=== PATIENT | female | born 1930 | race Caucasian/White ===

== ENCOUNTER 2018-03-10 10:35 | Observation (INO) | payer MEDICARE ==
[2018-03-10] MEDS ORDERED: NS 0.9% 1000 ML* 1,000 ML IV ONE (11:44)
[2018-03-10] MEDS ORDERED: Meclizine TAB* 12.5 MG PO ONE (11:44)
[2018-03-10] MEDS ORDERED: Ondansetron ODT TAB* 4 MG ONE (12:03)
[2018-03-10] MEDS ORDERED: Ondansetron ODT TAB* 4 MG PO ONE (12:05)
--- NOTE | 2018-03-10 12:28 | RAD ---
HISTORY: Dizziness COMPARISONS: Head CT dated June 14, 2012 TECHNIQUE: Multiple contiguous axial CT scans were obtained of the head without intravenous contrast. FINDINGS: HEMORRHAGE/INFARCT: There is no hemorrhage or acute infarct. MASSES/SHIFT: There is no mass or shift. EXTRA-AXIAL SPACES: There are no extra-axial fluid collections. SULCI AND VENTRICLES: There is mild diffuse and proportional enlargement of the sulci and ventricles. CEREBRUM: There are no focal parenchymal abnormalities. BRAINSTEM: There are no focal parenchymal abnormalities. CEREBELLUM: There are no focal parenchymal abnormalities. VESSELS: The vessels are grossly normal. PARANASAL SINUSES: The paranasal sinuses are clear. ORBITS: The orbits are unremarkable. 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 OTHER: None IMPRESSION: NO ACUTE INTRACRANIAL PATHOLOGY.
[2018-03-10 12:46] LABS: ABS Basophils 0 10^3/ul (0-0.2); ABS Eosinophils 0 10^3/ul (0-0.6); ABS Lymphocytes 1.5 10^3/ul (1.0-4.8); ABS Monocytes 0.7 10^3/ul (0-0.8); ABS Neutrophils 6.9 10^3/ul (1.5-7.7); ABS Nucleated RBC 0 10^3/ul; Eosinophil % 0.5 % (0-6); Hematocrit 41 % (35-47); Hemoglobin 13.8 g/dl (12.0-16.0); Lymphocyte % 16.5 % (25-47); Mean Corpuscular HGB Conc 34 g/dl (31-36); Mean Corpuscular Hemoglobin 31 pg (27-31); Mean Corpuscular Volume 90 fL (80-97); Mean Platelet Volume 8.2 um3 (7.4-10.4); Nucleated Red Blood Cells % 0; Platelet Count 269 10^3/ul (150-450); Red Cell Distribution Width 14 % (10.5-15); White Blood Count 9.2 10^3/ul (3.5-10.8)
[2018-03-10 13:11] LABS: INR 0.91 (0.77-1.02)
--- NOTE | 2018-03-10 13:14 | RAD ---
HISTORY: Chest pain, dizziness COMPARISONS: July 03, 2009 VIEWS: 1: frontal portable view of the chest at 12:55 PM FINDINGS: LINES AND TUBES: None. CARDIOMEDIASTINAL SILHOUETTE: The cardiomediastinal silhouette is normal for portable technique. PLEURA: The costophrenic angles are sharp. No pleural abnormalities are noted. LUNG PARENCHYMA: The lungs are clear. ABDOMEN: The upper abdomen is clear. There is no subphrenic gas. BONES AND SOFT TISSUES: No bone or soft tissue abnormalities are noted. IMPRESSION: NO ACTIVE CARDIOPULMONARY DISEASE.
[2018-03-10 13:18] LABS: Urine Appearance Clear; Urine Blood 1+ (Negative); Urine Color Yellow; Urine Ketones Negative (Negative); Urine Protein Negative (Negative); Urine Specific Gravity 1.008 (1.010-1.030); Urine Urobilinogen Negative (Negative)
[2018-03-10 13:23] LABS: EGFR Non-African American 43.1 (>60)
[2018-03-10] MEDS ORDERED: oxyCODONE/Acetamin 5/325 MG* TAB PO PRN (14:55)
[2018-03-10] MEDS ORDERED: Ondansetron INJ* 2 MG/ML VIAL IV PRN (14:55)
[2018-03-10] MEDS ORDERED: Acetaminophen TAB* 325 MG PO PRN (14:55)
[2018-03-10] MEDS ORDERED: NS 0.9% 1000 ML* 1,000 ML IV SCH (15:00)
--- NOTE | 2018-03-10 16:51 | ECHO ---
Patient: TANI NUÑEZ I [facility] Rec#: [id number] : 1930 Date: 03/10/2018 Age: 87y Height: 162.56 cm / 64.0 in Weight: 63.5 kg / 140.0 lbs Sex: F BSA: 1.68 Room#: [facility] Admit Date#: 03/10/2018 Type: Inpatient Referring: Tay Arellano MD Reading: Neftali Greenfield MD Transmission And Protection Engineer: Lilia HoustonJESUS CC: Yevgeniy Lloyd MD Transthoracic Echocardiogram Indication: Dizziness/ giddiness BP: 144/69 HR: 66 Rhythm: NSR Findings History: Breast cancer s/p bilateral mastectomies and HTN. Technical Comments: The study quality is fair. The study is technically limited due to poor parasternal windows. Completed at 1620. Left Ventricle: The left ventricular chamber size is decreased. Mild concentric left ventricular hypertrophy is observed. Basal interventricular septum shows moderate thickening. Global left ventricular wall motion and contractility are within normal limits. There is normal left ventricular systolic function. The estimated ejection fraction is 55-60%. Abnormal left ventricular diastolic function is observed. There is an E to A reversal in the mitral valve flow pattern suggestive of diastolic dysfunction. Left Atrium: The left atrial chamber size is normal. Right Ventricle: The right ventricular cavity size is normal. The right ventricular global systolic function is normal. Right Atrium: The right atrial cavity size is normal. Aortic Valve: The aortic valve is trileaflet. The aortic valve leaflets are mildly thickened. There is mild aortic regurgitation. There is no evidence of aortic stenosis. Mitral Valve: The mitral valve leaflets are mildly thickened. There is a trace of mitral regurgitation. There is no evidence of mitral stenosis. Tricuspid Valve: The tricuspid valve leaflets are normal. There is mild tricuspid regurgitation. The right ventricular systolic pressure is estimated at 30 mmHg. No pulmonary hypertension is noted. There is no tricuspid stenosis. Pulmonic Valve: The pulmonic valve appears normal. There is mild pulmonic regurgitation. There is no pulmonic stenosis. Pericardium: There is no significant pericardial effusion. A pericardial fat pad is visualized. Aorta: There is no dilatation of the ascending aorta. There is no dilatation of the aortic arch. The aortic root is normal in size. Pulmonary Artery: The main pulmonary artery is not well visualized. Venous: The inferior vena cava appears normal in size. There is a greater than 50% respiratory change in the inferior vena cava dimension. Summary: There was not any prior study for comparison. Conclusions The left ventricular chamber size is decreased. Mild concentric left ventricular hypertrophy is observed. There is normal left ventricular systolic function. The estimated ejection fraction is 55-60%. Abnormal left ventricular diastolic function is observed. There is mild aortic regurgitation. There is a trace of mitral regurgitation. There is mild tricuspid regurgitation. There is mild pulmonic regurgitation. Measurements Name Value Normal Range RVIDd (AP) 2D 3 cm (0.9 - 2.6) RVDdMajor (2D) 4.2 cm (2.2 - 4.4) RAd ISD 4CH 4 cm (3.4 - 4.9) RA (A4C)W 3.9 cm (2.9 - 4.6) IVSd (2D) 1.1 cm (0.6 - 1) LVPWd (2D) 1.1 cm (0.6 - 1) LVIDd (2D) 3 cm (3.6 - 5.4) LVIDs (2D) 2.5 cm - LV FS (2D) 18 % (25 - 45) Aortic Annulus 1.7 cm (1.4 - 2.6) Ao root diameter (2D) 3.5 cm (2.1 - 3.5) Ascending Ao 3.2 cm (2.1 - 3.4) Aortic arch 2.6 cm (1.8 - 3.4) LA dimension (AP) 2D 2.9 cm (2.3 - 3.8) LAd ISD 4CH 4.5 cm (2.9 - 5.3) LA ISD 4CH W 3.8 cm (2.5 - 4.5) Name Value Normal Range LA ESV SP 4CH (A/L) 34 ml - LA ESV SP 2CH (A/L) 33 ml - LA ESV BP (A/L) 35 ml - LA ESV BP (A/L) index 21 ml/m2 - LA ESV SP 4CH (MOD) 31 ml - LA ESV SP 2CH (MOD) 32 ml - Name Value Normal Range MV E-wave Vmax 0.56 m/sec - MV deceleration time 251.18 msec - MV A-wave Vmax 0.73 m/sec - MV E:A ratio 0.78 ratio - LV septal e' Vmax 0.07 m/sec - LV lateral e' Vmax 0.07 m/sec - LV E:e' septal ratio 8 ratio - LV E:e' lateral ratio 8 ratio - Name Value Normal Range AV Vmax 1.4 m/sec - AV VTI 27.85 cm - AV peak gradient 7.35 mmHg - AV mean gradient 2.93 mmHg - LVOT Vmax 1.2 m/sec - LVOT VTI 23.71 cm - LVOT peak gradient 5.59 mmHg - LVOT mean gradient 1.8 mmHg - JOSE Vmax 0.6 m/sec - Name Value Normal Range TR Vmax 2.6 m/sec - TR peak gradient 27 mmHg - RAP 3 mmHg - RVSP 30 mmHg - IVC diameter 1.8 cm - Name Value Normal Range PV Vmax 1.02 m/sec - PV peak gradient 4.21 mmHg - NH end-diastolic Vmax 0.86 m/sec -
--- NOTE | 2018-03-10 18:29 | ED ---
Guy Douglas Julia, scribed for Mary Ellen Martinez MD on 03/10/18 at 1139 . Shortness of Breath - HPI Summary HPI Summary: This patient is a 87 year old F presenting to [facility] accompanied by her son from her PCPs office with a chief complaint of dizziness, SOB, and intermittent right sided CP today. Son reports right arm pain that occurred a couple days ago that is currently resolved. Pt describes dizziness as room spinning. Patient denies urinary symptoms and headaches. The patient rates the pain 8/10 in severity. Son states she is typically very quiet and doesnt complain. PMHx of HTN. - History of Current Complaint Chief Complaint: EDDizziness Time Seen by Provider: 03/10/18 10:54 Hx Obtained From: Patient, Family/Loom Control Chain Builder Onset/Duration: Lasting Hours Timing: Constant Dyspnea At: Rest Associated Signs & Symptoms: Chest Pain Unrelated to Cough, Dizzy - Allergy/Home Medications Allergies/Adverse Reactions: Allergies Allergy/AdvReac Type Severity Reaction Status Date / Time No Known Allergies Allergy Verified 03/10/18 10:44 Home Medications: Home Medications Aspirin EC TAB* [Ecotrin EC Low Dose 81 MG*] 81 mg PO DAILY 03/10/18 [History Confirmed 03/10/18] Calcium Carbonate/Vitamin D3 [Calcium 500 + Vit D Caplet] 1 tab PO DAILY [History Confirmed 03/10/18] Cholestyramine Resin* [Questran*] 4 gm PO DAILY 03/10/18 [History Confirmed ] Glucosam/Chondr/Collagn/Hyalur [Th Glucosamine/Chondroiti] 1 cap PO DAILY [History Confirmed 03/10/18] Berne-3 Fatty Acids (Nf) [Fish Oil (NF)] 1,000 mg PO DAILY 03/10/18 [History Confirmed 03/10/18] Omeprazole CAP* [Prilosec CAP* 20 MG] 20 mg PO BID 03/10/18 [History Confirmed 03/10/18] Ramipril CAP* [Altace CAP*] 5 mg PO DAILY 03/10/18 [History Confirmed 03/10/18] PMH/Surg Hx/FS Hx/Imm Hx Cardiovascular History: Reports: Hx Hypertension EENT History: Denies: Hx Deafness Neurological History: Denies: Hx CVA Infectious Disease History: No Infectious Disease History: Denies: Traveled Outside the [place] in Last 30 Days - Family History Known Family History: Positive: Hypertension - Social History Hx Substance Use: No Hx Tobacco Use: Yes Smoking Status (MU): Former Smoker Review of Systems Positive: Chest Pain Positive: Shortness Of Breath Positive: no symptoms reported Positive: Myalgia - right arm pain Neurological: Other - dizziness Negative: Headache All Other Systems Reviewed And Are Negative: Yes Physical Exam - Summary Physical Exam Summary: GENERAL: Patient is a well developed and nourished F who is lying comfortable in the stretcher. Patient is not in any acute respiratory distress. HEAD AND FACE: Normocephalic EYES: PERRLA, EOMI x 2. EARS: Hearing grossly intact. MOUTH: Oropharynx within normal limits. NECK: Supple, trachea is midline, no adenopathy, no JVD, no carotid bruit. CHEST: Symmetric, no tenderness at palpation LUNGS: Clear to auscultation bilaterally. No wheezing or crackles. CVS: Regular rate and rhythm, S1 and S2 present, no murmurs or gallops appreciated. ABDOMEN: Soft, non-tender. Bowel sounds are normal. No abdominal abnormal pulsations. EXTREMITIES: Full ROM in all major joints, no edema, no cyanosis or clubbing. NEURO: Alert and oriented x 3. No acute neurological deficits. Speech is normal and follows commands. Flat affect. Cranial nerves 2-12 grossly intact, no dysmetria finger to nose, SKIN: Dry and warm Triage Information Reviewed: Yes Vital Signs On Initial Exam: Initial Vitals Temp Pulse Resp BP Pulse Ox 97.6 F 80 14 148/84 100 03/10/18 10:45 03/10/18 10:45 03/10/18 10:45 03/10/18 10:45 03/10/18 10:45 Vital Signs Reviewed: Yes Diagnostics - Vital Signs Vital Signs Temp Pulse Resp BP Pulse Ox 03/10/18 10:45 97.6 F 80 14 148/84 100 - Laboratory Result Diagrams: 03/10/18 12:32 03/10/18 12:32 Lab Statement: Any lab studies that have been ordered have been reviewed, and results considered in the medical decision making process. - Radiology CXR Radiology Interpretation Completed By: Radiologist - NO ACTIVE CARDIOPULMONARY DISEASE. ED Physician has reviewed this report. - CT Brain CT CT Interpretation Completed By: Radiologist - NO ACUTE INTRACRANIAL PATHOLOGY. ED Physician has reviewed this report. - EKG 1128 Cardiac Rate: NL EKG Rhythm: Sinus Rhythm - 66 BPM EKG Interpretation: nothing grossly abnormal Re-Evaluation - Re-Evaluation 1 Re-Evaluation Time: 14:05 Comment: Informed patient of results. Admission is recommended. Pt agrees to this plan. 2 Re-Evaluation Time: 14:37 Comment: Pts son is informed of results and plan. Course/Dx - Course Course Of Treatment: 87 y/o F presents to ED with dizziness and right sided CP radiating to R arm. Labs reviewed and is remarkable for elevated BUN creatnine ratio of 21.[address] Brain shows no acute intracrainal pathology. CXR shows no acute cardiopulmonary process. Pt was given 1L of IV fluids, Zofran, Meclizine. Pt reports some improvement but is still dizzy, so pt will be admitted. Case is discussed with hospitalist, Dr. Arellano, who agrees to admit. - Diagnoses Provider Diagnoses: Dizziness, Atypical chest pain - Physician Notifications Discussed Care of Patient With: Tay Arellano - hospitalist Time Discussed With Above Provider: 14:45 Instructed by Provider To: Admit As Inpatient Discharge - Sign-Out/Discharge Documenting (check all that apply): Discharge/Admit/Transfer - admit - Discharge Plan Condition: Stable Disposition: ADMITTED TO [facility] The documentation as recorded by the Guy crystal Julia accurately reflects the service I personally performed and the decisions made by me, Mary Ellen Martinez MD.
[2018-03-10] MEDS ORDERED: Calcium Carbonate CHEW TAB* 500 MG (TUMS) PO ONE (20:34)
[2018-03-10] MEDS: Heparin VIAL(*) 5000 UNITS/ML VIAL (FIVE THOUSAND) SUBCUT SCH (21:35)
[2018-03-10] MEDS: Omeprazole CAP* 20 MG PO SCH (21:36)
[2018-03-11] MEDS ORDERED: Simethicone LIQ* 40 MG/0.6 ML UD ORAL SYRINGE PO ONE (02:54)
[2018-03-11] MEDS: Heparin VIAL(*) 5000 UNITS/ML VIAL (FIVE THOUSAND) SUBCUT SCH (05:45)
[2018-03-11] MEDS: Omeprazole CAP* 20 MG PO SCH (08:06)
[2018-03-11] MEDS ORDERED: Simethicone TAB* 80 MG TAB.CHEW PO PRN (08:28)
[2018-03-11 13:27] VITALS: BP 131/47
--- NOTE | 2018-03-11 15:56 | PN ---
Hospitalist Progress Note Date of Service: 03/11/18 . HOSPITALIST DISCHARGE NOTE: See dc instructions and summary by me. Patient stable for dc dc instructions reviewed with the patient at the bedside. DC patient home today.
--- NOTE | 2018-03-11 20:40 | HP ---
CC: Yevgeniy Lloyd MD COMBINED ADMISSION HISTORY AND PHYSICAL AND DISCHARGE SUMMARY: DATE OF ADMISSION: 03/10/18 TIME OF MY EVALUATION: 3 p.m. PRIMARY CARE PROVIDER: Yevgeniy Lloyd MD CHIEF COMPLAINT: Dizziness/fatigue/right-sided chest pain. HISTORY OF PRESENT ILLNESS: Ms. Zuleta is an 87-year-old female who reports intermittent lightheadedness for approximately 5 days. The patient saw her PCP earlier the day of admission and was referred to the emergency room. She also had a single episode of sharp pain that went from her right hand to her right shoulder. She thinks she might have also had some chest pain, but was very vague about this. The patient denied shortness of breath, though she was unsure about perhaps coughing. She more confidently denied visual changes or headaches. The patient denied any symptomatology like this before. The patient denies any recent illnesses. The patient came to the emergency room and reported similar history to the ED staff there. The patient denies urinary symptoms. The patient is typically stoic according to the patient's son. The patient has a history of hypertension, but takes relatively few medications. PAST MEDICAL HISTORY: 1. Hypertension. 2. Anxiety. 3. Joint pain/arthritis. 4. GERD. OUTPATIENT MEDICATIONS: 1. Aspirin 81 mg by mouth daily. 2. Cholestyramine 4 g dissolve and take in a glass of liquid daily. 3. Omeprazole 20 mg by mouth twice daily. 4. Ramipril 5 mg by mouth daily. 5. Glucosamine/chondroitin 500/400 mg once daily. 6. Calcium 600 mg by mouth daily. 7. Fish oil 1 tablet by mouth once daily. ALLERGIES: No known drug allergies. SOCIAL HISTORY: The patient is retired. 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 She denies any history of illicit drugs. She is a nonsmoker. She is accompanied by her daughter who is 1 of 3 children. She has 2 other sons who live nearby. Her healthcare proxy and emergency contact are detailed in the EMR of the hospital. REVIEW OF SYSTEMS: A review of 14 systems was accomplished at the bedside. This is largely negative except for the pertinent positives I mentioned above in the HPI and past medical history. Of note, the patient feels occasionally short of breath, but has exhibited no objective respiratory difficulties and the patient denies any coughing or objective symptomatology and she states she is not short of breath at the present time. PHYSICAL EXAMINATION ON ADMISSION: GENERAL APPEARANCE: Elderly woman, appears stated age, no apparent distress at this time, somewhat dehydrated in appearance. VITALS: Temperature afebrile, 97.6 degrees Fahrenheit, pulse 70 to 80s and regular, oxygen saturation 99% or 100% with the respiratory rate in the low teens on room air, blood pressure 140s to 160s/80s. HEENT: Oropharynx is dry. Mucous membranes are also dry. No posterior pharyngeal erythema or exudate. NECK: Supple. No elevated jugular venous distention noted. CHEST: Clear anteriorly and posteriorly to auscultation. CARDIAC: Sounds included normal S1 and S2. Regular rate and rhythm. At the time of my exam, no precordial heave. ABDOMEN: Soft and nontender. LYMPH: No adenopathy appreciated. NEUROLOGIC: Her exam is nonfocal with normal gait. No motor, sensory or proprioception component deficiencies. PSYCH: Normal affect. No acute anxiety or depression noted. SKIN: Dry and intact. No rashes, lesions, or breakdown. ADMISSION DATA: White blood cell count normal at 9.2, hemoglobin 13.8, platelets 269,000. Blood chemistries generally unremarkable save an elevated BUN to creatinine ratio of 21.8 with a BUN of 26 and creatinine of 1.19. I do not have a baseline creatinine, but in speaking with her primary care provider, her creatinine is above 1 at baseline. Normal sodium 140, normal potassium at 4.2, normal bicarb at 24. Normal LFTs. Calcium is borderline elevated at 10.7 with a later repeat at 9.3. Lactic acid 1.8 (normal). Initial troponin 0.01. BNP unremarkable at less than 100, specific report not given. Albumin is preserved at 4.2. Total protein 7.0. EKG has some anterior changes consistent with an old ND and no acute ST or T wave changes. Chest x-ray showed no acute cardiopulmonary disease. Her head CT showed no acute intracranial pathology and an echocardiogram done near the time of her admission showed a left ventricular chamber size that was decreased with mild concentric left ventricular hypertrophy, but normal left ventricular systolic function with a preserved estimated ejection fraction between 55% and 60%. Again, abnormal ventricular diastolic function was observed, but no other valvular abnormality of note. There is no pulmonary hypertension noted. No pericardial disease noted. IMPRESSION AND PLAN: Ms. Zuleta is an 87-year-old female with several days of dizziness, lightheadedness, fatigue and one episode of right arm pain and perhaps radiation in to her right chest. PLAN BY MEDICAL PROBLEM: Fatigue/dizziness/lightheadedness. The patient is certainly not dizzy at this point. She reported no room spinning as I interview her, including with movement and ambulation. She seems a bit dehydrated by physical exam and by her labs (BUN to creatinine ratio). We are going to hydrate the patient gently overnight and recheck labs in the morning. The echocardiogram that I ordered at the point of her admission was already done and the results communicated above. The patient does not have any evidence of an acute infection. She has a normal lactic acid level. She is afebrile. She has a normal white count. I do not believe there is obvious infection to explain this. The patient has had a subclinical infection, perhaps a cold that has impaired her oral intake and so I think she might simply be dehydrated. She will be placed on observation status and the patient will be reassessed in the morning. Other medications will be continued as prescribed in the outpatient setting. She will be monitored on telemetry for any arrhythmias and further decisions will be based on her clinical progress. TIME SPENT: Total time taken to admit Ms. Zuleta on 03/10/18 was 75 minutes, greater than half that time spent at the bedside explaining my clinical plan, conducting my interview and examination and possible explanations for her symptoms. HISTORY OF PRESENT ILLNESS AND HOSPITAL COURSE: After the overnight observation, Ms. Zuleta was feeling much improved. Her lab work improved with respect to her BUN to creatinine ratio. Her anion gap which is 13 and her BUN which was 26 dropped to 5 and 18, respectively, though her creatinine remained approximately the same at 1.17, marginally down from 1.19. Serial troponins remained negative. Her elevated calcium at 10.7 normalized to 9.3 with fluids. Her lactic acid was never elevated to justify a recheck. Her coagulation parameters were unremarkable. She never developed a white blood cell count and her urinalysis was also unremarkable. Her telemetry monitoring was normal sinus rhythm consistently. She experienced no respiratory distress. In the morning, she was ambulating without decrease in her pulse oximetry. She walked independently and without the need for help. She had an uneventful lunch and is discharged home in stable condition. I think that she had a subclinical infection the week prior to admission with some dehydration as evidenced by her labs. I do not have justification for ongoing antibiotic therapy. Therefore, I am not changing any of her medications which will be identical to the admission list above with the one exception and that was simethicone 80 mg by mouth twice daily for some bloating. I do think her right- sided discomfort was secondary to bloating as she developed some bloating and gassiness. The patient did experience relief with flatulence and the simethicone was given as a symptomatic therapy. Ms. Zuleta was asked to follow up with Dr. Lloyd this week. She was given return to ED instructions if she experiences any symptoms including but not limited to chest pain, shortness of breath, lightheadedness, or any other worrisome symptoms that might arise and cause concern. CONDITION AT DISCHARGE: Stable. STATUS DURING THIS HOSPITALIZATION: Observation. TIME SPENT: Total time taken to discharge Ms. Zuleta on 03/11/18 was 30 minutes, greater than half that time spent at the bedside going over the testing results and explaining my thoughts about the etiology of her symptomatology. [id number]/[facility] #: [id number] [facility]OSPITALIndigo
== END 2018-03-11 14:15 | disposition home or self-care (01) ==
LOC: ED 10:35 → MEDTELE 14:55
PROVIDERS: ADMIT Internal Medicine; ATTEND Internal Medicine
DX: R07.9 Chest pain, unspecified (principal); R42 Dizziness and giddiness; R53.83 Other fatigue; I10 Essential (primary) hypertension; F41.9 Anxiety disorder, unspecified; K21.9 Gastro-esophageal reflux disease without esophagitis; Z79.899 Other long term (current) drug therapy; R06.02 Shortness of breath; Z87.891 Personal history of nicotine dependence; I51.7 Cardiomegaly
CPT/HCPCS: 36415; 70450; 71045; 80048; 80053; 81003; 81015; 83605; 83735; 83880; 84484; 85025; 85610; 85730; 87077; 87086; 87186; 93005; 93306; 96360; 96361; 96372; 99284; A9270-GY; G0378; J1644

== ENCOUNTER 2018-03-12 15:23 | Inpatient (IN) | payer MEDICARE ==
[2018-03-12 17:50] LABS: ABS Basophils 0 10^3/ul (0-0.2); ABS Eosinophils 0.1 10^3/ul (0-0.6); ABS Monocytes 0.6 10^3/ul (0-0.8); ABS Neutrophils 5.1 10^3/ul (1.5-7.7); ABS Nucleated RBC 0 10^3/ul; Eosinophil % 1.6 % (0-6); Hematocrit 38 % (35-47); Hemoglobin 13.1 g/dl (12.0-16.0); Lymphocyte % 25.2 % (25-47); Mean Corpuscular HGB Conc 35 g/dl (31-36); Mean Corpuscular Hemoglobin 31 pg (27-31); Mean Corpuscular Volume 91 fL (80-97); Mean Platelet Volume 8.3 um3 (7.4-10.4); Nucleated Red Blood Cells % 0; Platelet Count 241 10^3/ul (150-450); Red Blood Count 4.17 10^6/ul (4.0-5.4); Red Cell Distribution Width 14 % (10.5-15); White Blood Count 7.9 10^3/ul (3.5-10.8)
--- NOTE | 2018-03-12 17:52 | RAD ---
Indication: LEFT side rib pain without proceeding injury. Attention posterior sixth through ninth ribs. History of tobacco use. Comparison: March 10, 2018 chest radiograph. Technique: Supine AP chest and 3 dedicated LEFT rib views. Report: No LEFT rib fracture pulmonary consolidation or gross evidence for pleural effusion or pneumothorax within limits of supine technique. Clear RIGHT lung and pleural space. Negative for cardiomegaly. Unremarkable central pulmonary vasculature. Mildly tortuous thoracic aorta without change. Gallbladder fossa level surgical clips. IMPRESSION: Negative for LEFT rib fracture. No evidence for acute intrathoracic disease.
[2018-03-12 18:05] LABS: EGFR Non-African American 38.6 (>60)
[2018-03-12 20:19] LABS: Urine Appearance Clear; Urine Blood Negative (Negative); Urine Color Yellow; Urine Ketones Negative (Negative); Urine Protein Negative (Negative); Urine Specific Gravity 1.008 (1.010-1.030); Urine Urobilinogen Negative (Negative)
[2018-03-12] MEDS ORDERED: Sulfamethox/Trimethoprim DS 800/160* TAB PO ONE (20:56)
[2018-03-12] MEDS ORDERED: Sulfamethox/Trimethoprim DS 800/160* TAB ONE (20:59)
[2018-03-12] MEDS ORDERED: Ramipril CAP* 5 MG PO ONE (22:00)
[2018-03-12] MEDS ORDERED: Acetaminophen TAB* 325 MG PO ONE (23:55)
--- NOTE | 2018-03-13 01:23 | ED ---
Kimmie Douglas Gabriel, mariamibed for Arun Martinez on 03/12/18 at 1946 . Progress - Progress Note Progress Note: This patient was signed out from Dr. Martinez, pending disposition, awaiting mental clearance. The patient has been cleared for MHE at 1931. After MHE exam pt was deemed stable to return home. Although there was a discussion with the patients family and they dont believe she is safe to stay home where she lives alone/ We discussed patient care with Dr. Brar and she has agreed to admit the patient but they must sign a mcfp form first. Dx dizziness, weakness, depression, UTI Course/Dx - Course Course Of Treatment: This patient was signed out from Dr. Martinez, pending disposition, awaiting mental clearance. The patient has been cleared for MHE at 1931. After MHE exam pt was deemed stable to return home. Although there was a discussion with the patients family and they dont believe she is safe to stay home where she lives alone/ We discussed patient care with Dr. Brar and she has agreed to admit the patient but they must sign a mcfp form first. Dx dizziness, weakness, depression, UTI - Diagnoses Provider Diagnoses: Depression, UTI (urinary tract infection), Weakness, Dizziness - Provider Notifications Discussed Care Of Patient With: Dianna Brar Time Discussed With Above Provider: 01:00 Instructed by Provider To: Other - We discussed patient care with Dr. Brar and she has agreed to admit the patient but they must sign a mcfp form first. Discharge - Sign-Out/Discharge Documenting (check all that apply): Receiving Sign-Out Receiving patient FROM: Mary Ellen Martinez - Discharge Plan Condition: Fair Disposition: ADMITTED TO [facility] Referrals: Yevgeniy Lloyd MD [Primary Care Provider] - The documentation as recorded by the Kimmie crystal Gabriel accurately reflects the service I personally performed and the decisions made by , Arun Martinez.
[2018-03-13] MEDS ORDERED: NS 0.9% 1000 ML* 1,000 ML IV SCH (01:30)
[2018-03-13] MEDS ORDERED: Midazolam* 1 MG/ML 5 ML VIAL (5 MG) ONE (03:34)
--- NOTE | 2018-03-13 04:09 | HP ---
HISTORY AND PHYSICAL: DATE OF ADMISSION: 03/12/18 PRIMARY CARE PROVIDER: Dr. Lloyd. CHIEF COMPLAINT: Malaise. HISTORY OF PRESENT ILLNESS: Ms. Zuleta is an 87-year-old female who was admitted from 03/10/18 through 03/11/18 where she was diagnosed with mild dehydration and malaise. It was felt that she likely was fighting a viral illness prior to her admission which lead to the mild dehydration. The patient ultimately was feeling better on 03/11/18 and was discharged home. Of note, the patient's temperature just prior to discharge was 100.0. The patient reportedly got home and went right to bed. She did not eat any dinner on that evening. She woke up on 03/12/18, she did eat some breakfast. The patient's son went to check on her and he found her complaining of not feeling well. At that point, he brought her back to the emergency room. The patient is very vague in her complaints. She just states that she feels unwell. She really will not answer many other questions for me. She does state that she feels tired. Her daughter states that this is very unusual for her mom, stating that her mom is typically very active. PAST MEDICAL HISTORY: 1. Hypertension. 2. Anxiety. 3. Arthritis. 4. GERD. MEDICATIONS: 1. Aspirin 81 mg p.o. daily. 2. Cholestyramine 4 mg daily. 3. Omeprazole 20 mg p.o. twice daily. 4. Ramipril 5 mg p.o. daily. 5. Glucosamine chondroitin 1 tab p.o. daily. 6. Calcium plus D one tab p.o. daily. 7. Fish oil 1000 mg p.o. daily. 8. Simethicone 80 mg p.o. q. 6 hours p.r.n. bloating. ALLERGIES: No known drug allergies. FAMILY HISTORY: Reviewed and noncontributory. 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 She is a nonsmoker. She does not drink alcohol. Her healthcare proxy is her son Manuel. REVIEW OF SYSTEMS: An attempted review of systems was performed; however, the patient did not specifically answer questions but only stated that she felt unwell. PHYSICAL EXAMINATION GENERAL: The patient is a well-developed elderly female seen lying in bed in the flex unit in no acute distress. VITAL SIGNS: Blood pressure 172/98, pulse 60, respirations 12, temp 97.6, and O2 sat 98% on room air. HEENT: Pupils are equal and round. Extraocular muscles are intact. Oropharynx is clear. Oral mucosa is slightly dry. NECK: There is no submandibular, cervical, or supraclavicular adenopathy. Thyroid is not enlarged, no thyroid nodules are noted. PULMONARY: Lungs are clear to auscultation bilaterally. CARDIAC: Normal S1 and S2. Regular, rate, and rhythm. I do not appreciate any murmurs. ABDOMEN: Bowel sounds present. Abdomen is soft, nontender, and nondistended. MUSCULOSKELETAL: There is no cyanosis or clubbing of the digits. There is full active range of motion of all 4 extremities. SKIN: Warm and dry there are no rashes. NEUROLOGIC: Cranial nerves II through XII are grossly intact. Sensation is intact to light touch throughout. Strength is 5/5 and symmetric in both upper and lower extremities bilaterally. PSYCH: The patient is alert. She appears to be oriented x3, but again is a very poor historian. LABORATORY DATA: WBC 7.9, hemoglobin 13.1, hematocrit 38, platelets 241. Sodium 138, potassium 4.0, chloride 103, CO2 of 28, BUN 21, creatinine 1.31, glucose 115, calcium 10.0, bilirubin 0.6, AST 16, ALT 15, alk phos 60, albumin 3.6, TSH 2.27. Urinalysis reveals a specific gravity of 1.008, and 2+ leukocyte esterase, 3+ wbc, 1+ rbc, and 1+ bacteria. Urine drug screen negative. CT brain, normal head. ASSESSMENT AND PLAN: Ms. Zuleta is an 87-year-old female who was hospitalized from 03/10/18 through 03/11/18 with complaints of dizziness and was treated for mild dehydration and was sent home who re-presents to the emergency room with complaints of ongoing malaise. 1. Malaise. Etiology of this is not completely clear. The patient does appear to have a urinary tract infection. Her urinalysis today is quite a bit different from her UA obtained on 03/10/18. Additionally, urine culture from has grown E. coli. The patient does admit to occasional dysuria. Given her complaints of mild dysuria and change in her urinalysis with the culture growing E. coli, I will go ahead and treat this with Keflex 500 mg p.o. twice daily. The patient will be under observation status while initiating this therapy to see if she improves. Additionally, the patient's creatinine went up from discharge. We do not have a baseline creatinine on her. Her creatinine; however, on 03/12/18 is more elevated compared to how she was even on 03/10/18. She will receive normal saline at 75 mL per hour. 2. Hypertension. The patient is quite hypertensive at this point. We will continue the Ramipril and monitor her blood pressure. 3. Gastroesophageal reflux disease. Continue omeprazole. 4. DVT prophylaxis. According to the Adult Thrombosis Prophylaxis Risk Factor Assessment Guide, the patient has a total risk factor score of 3 making her high risk. Heparin 5000 units subcutaneous q.8 hours will be utilized as DVT prophylaxis. 5. Code status is DNR. [id number] #: [id number] MTDD
[2018-03-13] MEDS: Cephalexin CAP* 500 MG PO SCH ×3 (04:22→22:20)
[2018-03-13] MEDS: Heparin VIAL(*) 5000 UNITS/ML VIAL (FIVE THOUSAND) SUBCUT SCH ×3 (07:10→22:20)
--- NOTE | 2018-03-13 07:29 | RAD ---
INDICATION: Headache. COMPARISON: Comparison is made with a prior CT of the brain from March 10, 2018. TECHNIQUE: Contiguous axial sections of the brain were obtained from the skull base to the vertex without contrast. FINDINGS: The ventricles, cisterns and sulci are enlarged consistent with age-related atrophy. No significant focal abnormality or mass effect is seen. There is no evidence for hemorrhage. No significant focal osseous abnormality is seen. The visualized portion of the paranasal sinuses and mastoid air cells appear clear. IMPRESSION: NO EVIDENCE FOR ACUTE INTRACRANIAL ABNORMALITY.
[2018-03-13 08:51] LABS: ABS Basophils 0 10^3/ul (0-0.2); ABS Eosinophils 0.1 10^3/ul (0-0.6); ABS Lymphocytes 1.1 10^3/ul (1.0-4.8); ABS Monocytes 0.4 10^3/ul (0-0.8); ABS Nucleated RBC 0 10^3/ul; Hematocrit 40 % (35-47); Hemoglobin 13.6 g/dl (12.0-16.0); Lymphocyte % 16.6 % (25-47); Mean Corpuscular HGB Conc 34 g/dl (31-36); Mean Corpuscular Hemoglobin 31 pg (27-31); Mean Corpuscular Volume 91 fL (80-97); Mean Platelet Volume 8.2 um3 (7.4-10.4); Nucleated Red Blood Cells % 0.1; Platelet Count 236 10^3/ul (150-450); Red Cell Distribution Width 13 % (10.5-15); White Blood Count 6.6 10^3/ul (3.5-10.8)
[2018-03-13 09:16] LABS: EGFR Non-African American 46.2 (>60)
[2018-03-13] MEDS: Aspirin EC TAB* 81 MG TAB.EC PO SCH (10:02)
[2018-03-13] MEDS: Calcium/Vitamin D TAB 250/125* TAB PO SCH (10:03)
[2018-03-13] MEDS: Ramipril CAP* 5 MG PO SCH (10:06)
[2018-03-13] MEDS: Omeprazole CAP* 20 MG PO SCH ×2 (10:07→22:20)
[2018-03-13] MEDS: Acetaminophen TAB* 325 MG PO PRN ×2 (10:12→22:24)
[2018-03-13] MEDS: Cholestyramine Resin* 4 GM POWDER PO SCH (10:16)
--- NOTE | 2018-03-13 12:18 | ED ---
Disha Douglas Edward, scribed for Mary Ellen Martinez MD on 03/12/18 at 1639 . Complex/Multi-Sys Presentation - HPI Summary HPI Summary: 87 y/o female BIBA c/o pain at the L armpit area. Associated sx: SOB. Pt states she "just didn't feel good". Rib pain aggravated with movement. Pt was seen yesterday for dizziness and pain in the R arm pit area, and admitted to [facility]. Pt states she had "all the tests" done on her last night. Pt lives alone. PMHx depression. - History Of Current Complaint Chief Complaint: EDGeneral Time Seen by Provider: 03/12/18 16:31 Hx Obtained From: Patient Onset/Duration: Still Present Timing: Constant Location: Pain At: - L armpit area Aggravating Factor(s): movement Associated Signs And Symptoms: Positive: SOB - Allergies/Home Medications Allergies/Adverse Reactions: Allergies Allergy/AdvReac Type Severity Reaction Status Date / Time No Known Allergies Allergy Verified 03/10/18 10:44 PMH/Surg Hx/FS Hx/Imm Hx Previously Healthy: No Cardiovascular History: Reports: Hx Hypertension GI History: Reports: Hx Gastroesophageal Reflux Disease Sensory History: Reports: Hx Contacts or Glasses Denies: Hx Deafness, Hx Hearing Aid Opthamlomology History: Reports: Hx Contacts or Glasses Neurological History: Denies: Hx CVA Psychiatric History: Reports: Hx Anxiety, Hx Depression - Cancer History Cancer Type, Location and Year: breast cancer, double mastectomy, left lumph node removal Hx Chemotherapy: No Hx Radiation Therapy: No - Surgical History Surgery Procedure, Year, and Place: cholecystectomy Infectious Disease History: No Infectious Disease History: Denies: Hx Shingles, Hx Tuberculosis, Traveled Outside the [place] in Last 30 Days - Family History Known Family History: Positive: Hypertension - Social History Alcohol Use: None Hx Substance Use: No Substance Use Type: Reports: None Hx Tobacco Use: Yes Smoking Status (MU): Former Smoker Review of Systems Constitutional: Negative Eyes: Negative ENT: Negative Cardiovascular: Negative Positive: Shortness Of Breath Gastrointestinal: Negative Genitourinary: Negative Positive: Other - L rib pain Skin: Negative Neurological: Negative Psychological: Normal All Other Systems Reviewed And Are Negative: Yes Physical Exam - Summary Physical Exam Summary: GENERAL: ~Patient is a well developed and nourished F who is lying comfortable in the stretcher. ~Patient is not in any acute respiratory distress. HEAD AND FACE: Normocephalic EYES: PERRLA, EOMI x 2. EARS: Hearing grossly intact. MOUTH: Oropharynx within normal limits. NECK: Supple, trachea is midline, no adenopathy, no JVD, no carotid bruit. CHEST: Symmetric, no tenderness at palpation LUNGS: Clear to auscultation bilaterally. No wheezing or crackles. CVS: Regular rate and rhythm, S1 and S2 present, no murmurs or gallops appreciated. ABDOMEN: Soft, non-tender. Bowel sounds are normal. No abdominal abnormal pulsations. EXTREMITIES: Full ROM in all major joints, no edema, no cyanosis or clubbing. Pt is tender @ the lateral and posterior L ribs. NEURO: Alert and oriented x 3. No acute neurological deficits. Speech is normal and follows commands. SKIN: Dry and warm Triage Information Reviewed: Yes Vital Signs On Initial Exam: Initial Vitals Temp Pulse Resp BP Pulse Ox 98.6 F 72 16 163/89 100 03/12/18 15:27 03/12/18 15:27 03/12/18 15:27 03/12/18 15:27 03/12/18 15:27 Vital Signs Reviewed: Yes Diagnostics - Vital Signs Vital Signs Temp Pulse Resp BP Pulse Ox 03/12/18 16:03 64 11 184/123 98 03/12/18 16:01 65 10 98 03/12/18 15:27 98.6 F 72 16 163/89 100 - Laboratory Result Diagrams: 03/12/18 17:40 03/12/18 17:40 Lab Statement: Any lab studies that have been ordered have been reviewed, and results considered in the medical decision making process. - Radiology RIBS XR Xray Interpretation: No Acute Changes - Negative for LEFT rib fracture. No evidence for acute intrathoracic disease. Radiology Interpretation Completed By: Radiologist - EKG 1 EKG Interpretation: 15:43 - NSR @ 68 BPM. Otherwise normal Complex Multi-Symp Course/Dx Assessment/Plan: 87 y/o female who is admitted and d/c this morning. Presenting now with L posterior rib pain. Upon further investigation, pt reveals she is sad and feeling depressed. Pt became tearful. She was ordered for mohamud. Pt will be signed out to Dr. Martinez pending medical clearance. - Diagnoses Provider Diagnoses: Depression, Rib pain Discharge - Sign-Out/Discharge Documenting (check all that apply): Sign-Out Patient Signing out patient TO: Arun Martinez Receiving patient FROM: Mary Ellen Martinez - Discharge Plan Referrals: Yevgeniy Lloyd MD [Primary Care Provider] - The documentation as recorded by the Disha crystal Edward accurately reflects the service I personally performed and the decisions made by Juan viera Tudie-Ann, MD.
--- NOTE | 2018-03-13 14:05 | PN ---
Subjective Date of Service: 03/13/18 Interval History: Patient reports she feels a little better today but has continued mild dizziness and low abdominal and back pain. Reports intermittent dysuria, no blood noted in urine. No nausea or vomiting. Normal bowel movements. eating meals. No fever or chills. Objective Active Medications: Acetaminophen (Tylenol Tab*) 650 mg PO Q4H PRN PRN Reason: PAIN Last Admin: 03/13/18 10:12 Dose: 650 mg Aspirin (Aspirin Ec Tab*) 81 mg PO DAILY [facility] Last Admin: 03/13/18 10:02 Dose: 81 mg Calcium/Vitamin D (Oscal D Tab 250/125*) 1 tab PO DAILY [facility] Last Admin: 03/13/18 10:03 Dose: 1 tab Cephalexin HCl (Keflex Cap*) 500 mg PO BID [facility] Last Admin: 03/13/18 10:05 Dose: 500 mg Cholestyramine Resin (Questran*) 4 gm PO DAILY [facility] Last Admin: 03/13/18 10:16 Dose: Not Given Heparin Sodium (Porcine) (Heparin Vial(*)) 5,000 units SUBCUT Q8HR [facility] Last Admin: 03/13/18 07:10 Dose: 5,000 units Sodium Chloride (Ns 0.9% 1000 Ml*) 1,000 mls @ 75 mls/hr IV PER RATE [facility] Omeprazole (Prilosec Cap*) 20 mg PO BID [facility] Last Admin: 03/13/18 10:07 Dose: 20 mg Ramipril (Altace Cap*) 5 mg PO DAILY [facility] Last Admin: 03/13/18 10:06 Dose: 5 mg Simethicone (Mylicon Tab*) 80 mg PO Q6H PRN PRN Reason: bloating Vital Signs - 8 hr 03/13/18 03/13/18 07:41 11:10 Temperature 97.8 F 97.9 F Pulse Rate 61 64 Respiratory 16 16 Rate Blood Pressure 156/67 134/58 (mmHg) O2 Sat by Pulse 98 97 Oximetry Oxygen Devices in Use Now: None Appearance: well developed elderly female A+O x3 in NAD - appears mildly ill Eyes: No Scleral Icterus, PERRLA Ears/Nose/Mouth/Throat: NL Teeth, Lips, Gums, Mucous Membranes Moist Neck: NL Appearance and Movements; NL JVP Respiratory: Symmetrical Chest Expansion and Respiratory Effort, Clear to Auscultation Cardiovascular: RRR Abdominal: - - soft, NL BS throughout. LLQ tenderness, suprapubic tenderness, Left sided CVA tenderness Extremities: No Edema, No Clubbing, Cyanosis Skin: No Rash or Ulcers, No Nodules or Sclerosis Neurological: Alert and Oriented x 3, NL Sensation, NL Gait, NL Muscle Strength and Tone Lines/Tubes/Other Access: Clean, Dry and Intact Peripheral IV Nutrition: Taking PO's Result Diagrams: 03/13/18 08:37 03/13/18 08:37 Assess/Plan/Problems-Billing Assessment: 87 yo female who was hospitalized from 03/10/18-03/11/18 with complaints of dizziness and was treated for mild dehydration, who re-presents on 03/12 with ongoing malaise found to have a UTI - Patient Problems (1) UTI (urinary tract infection) Comment: - no sepsis noted on admission; afebrile & no leukocytosis. feels better today but continues to have malaise and mild dizziness. - Urine cx 03/10 grew e-coli 75-100K - started on keflex on admission - CVA tenderness today - plan to obatin renal ultrasound (2) HTN (hypertension) Comment: - controlled. Continue Ramipril (3) GERD (gastroesophageal reflux disease) Comment: PPI BID (4) DNR (do not resuscitate) (5) DVT prophylaxis Comment: HSQ Status and Disposition: OBV. Plan for renal ultrasound. Possible DC home tomorrow.
--- NOTE | 2018-03-13 15:21 | RAD ---
Indication: Left CVA tenderness, urinary tract infection. Real-time sonography of the kidneys was performed. The right kidney measures 9.3 x 4.1 x 4.2 cm. Left kidney measures 10.8 x 3.9 x 3.9 cm. There is a cyst in the midportion of the left kidney measuring 14 x 13 x 16 mm. IMPRESSION: No hydronephrosis of either kidney is noted. Left renal cyst.
[2018-03-13] MEDS: Simethicone TAB* 80 MG TAB.CHEW PO PRN (22:24)
[2018-03-14] MEDS: Heparin VIAL(*) 5000 UNITS/ML VIAL (FIVE THOUSAND) SUBCUT SCH ×3 (06:14→22:10)
[2018-03-14 06:44] LABS: ABS Basophils 0 10^3/ul (0-0.2); ABS Eosinophils 0.1 10^3/ul (0-0.6); ABS Lymphocytes 1.2 10^3/ul (1.0-4.8); ABS Monocytes 0.5 10^3/ul (0-0.8); ABS Neutrophils 5.6 10^3/ul (1.5-7.7); ABS Nucleated RBC 0 10^3/ul; Eosinophil % 1.4 % (0-6); Hematocrit 38 % (35-47); Lymphocyte % 16.5 % (25-47); Mean Corpuscular HGB Conc 34 g/dl (31-36); Mean Corpuscular Hemoglobin 31 pg (27-31); Mean Corpuscular Volume 90 fL (80-97); Nucleated Red Blood Cells % 0; Platelet Count 247 10^3/ul (150-450); Red Cell Distribution Width 14 % (10.5-15); White Blood Count 7.4 10^3/ul (3.5-10.8)
[2018-03-14 07:08] LABS: EGFR Non-African American 46.7 (>60)
[2018-03-14] MEDS: Omeprazole CAP* 20 MG PO SCH ×2 (08:12→19:46)
[2018-03-14] MEDS: Acetaminophen TAB* 325 MG PO PRN ×3 (08:13→19:46)
[2018-03-14] MEDS: Calcium/Vitamin D TAB 250/125* TAB PO SCH (08:13)
[2018-03-14] MEDS: Ramipril CAP* 5 MG PO SCH (08:13)
[2018-03-14] MEDS: Cephalexin CAP* 500 MG PO SCH ×2 (08:14→19:46)
[2018-03-14] MEDS: Cholestyramine Resin* 4 GM POWDER PO SCH (08:14)
[2018-03-14] MEDS: Aspirin EC TAB* 81 MG TAB.EC PO SCH (08:14)
[2018-03-14] MEDS: Simethicone TAB* 80 MG TAB.CHEW PO PRN ×2 (13:44→19:46)
--- NOTE | 2018-03-14 15:12 | PN ---
Subjective Date of Service: 03/14/18 Interval History: Patient seen and evaluated at the bedside. Son visiting at bedside. patient reports continue mild dizziness. No NOLEN or vision changes. continue to have suprapubic tenderness. back pain has improved today. little appetite but has been eating some during meals per son. Denies fever or chills. Reports normal BM today. Mild nausea this morning but no vomiting and currently feels better. Objective Active Medications: Acetaminophen (Tylenol Tab*) 650 mg PO Q4H PRN PRN Reason: PAIN Last Admin: 03/14/18 13:45 Dose: 650 mg Aspirin (Aspirin Ec Tab*) 81 mg PO DAILY [facility] Last Admin: 03/14/18 08:14 Dose: 81 mg Calcium/Vitamin D (Oscal D Tab 250/125*) 1 tab PO DAILY [facility] Last Admin: 03/14/18 08:13 Dose: 1 tab Cephalexin HCl (Keflex Cap*) 500 mg PO BID [facility] Last Admin: 03/14/18 08:14 Dose: 500 mg Cholestyramine Resin (Questran*) 4 gm PO DAILY [facility] Last Admin: 03/14/18 08:14 Dose: Not Given Heparin Sodium (Porcine) (Heparin Vial(*)) 5,000 units SUBCUT Q8HR [facility] Last Admin: 03/14/18 13:45 Dose: 5,000 units Omeprazole (Prilosec Cap*) 20 mg PO BID [facility] Last Admin: 03/14/18 08:12 Dose: 20 mg Ramipril (Altace Cap*) 5 mg PO DAILY [facility] Last Admin: 03/14/18 08:13 Dose: 5 mg Simethicone (Mylicon Tab*) 80 mg PO Q6H PRN PRN Reason: bloating Last Admin: 03/14/18 13:44 Dose: 80 mg Vital Signs - 8 hr 03/14/18 08:00 Respiratory 16 Rate Oxygen Devices in Use Now: None Appearance: eldelry female laying in bed alert + oriented x3 in NAD. flat affect Eyes: No Scleral Icterus, PERRLA Ears/Nose/Mouth/Throat: NL Teeth, Lips, Gums, - - dry mm Neck: NL Appearance and Movements; NL JVP Respiratory: Symmetrical Chest Expansion and Respiratory Effort, Clear to Auscultation Cardiovascular: NL Sounds; No Murmurs; No JVD, RRR, No Edema Abdominal: - - suprapubic tenderness Extremities: No Edema, No Clubbing, Cyanosis Skin: No Rash or Ulcers, No Nodules or Sclerosis Neurological: Alert and Oriented x 3, NL Sensation, NL Muscle Strength and Tone Lines/Tubes/Other Access: Clean, Dry and Intact Peripheral IV Nutrition: Taking PO's Result Diagrams: 03/14/18 05:53 03/14/18 05:53 Assess/Plan/Problems-Billing Assessment: 87 yo female who was hospitalized from 03/10/18-03/11/18 with complaints of dizziness and was treated for mild dehydration, who re-presents on 03/12 with ongoing malaise found to have a UTI - Patient Problems (1) UTI (urinary tract infection) Comment: - no sepsis noted on admission; afebrile & no leukocytosis. feels better today but continues to have malaise and mild dizziness. - Urine cx 03/10 grew e-coli 75-100K - started on keflex on admission based on [facility] - Renal ultrasound wnls (2) Dizziness Comment: - suspect 2nd to acute illness- Vitamin B12 high?? Could cause dizziness. DC home B12. - mildly dry on exam. Plan for 1 liter NS. - obtain orthostatic VS (3) HTN (hypertension) Comment: - BPs moderately high 150-170s, Continue Ramipril, add norvasc (4) GERD (gastroesophageal reflux disease) Comment: PPI BID (5) DNR (do not resuscitate) (6) DVT prophylaxis Comment: HSQ Status and Disposition: inpatient Tentative plan for DC home tomorrow.
[2018-03-14] MEDS ORDERED: amLODIPine TAB* 5 MG PO ONE (15:55)
[2018-03-14] MEDS ORDERED: Lactobacillus Acidophilus* 1 TAB PO ONE (15:56)
[2018-03-14] MEDS ORDERED: NS 0.9% 1000 ML* 1,000 ML IV SCH (19:00)
[2018-03-14] MEDS ORDERED: CMCS: Melatonin (NF) 3 MG TAB PO PRN (19:54)
[2018-03-15] MEDS: Heparin VIAL(*) 5000 UNITS/ML VIAL (FIVE THOUSAND) SUBCUT SCH ×2 (05:59→13:48)
[2018-03-15] MEDS ORDERED: Lactobacillus Acidophilus* 1 TAB PO SCH (09:00)
[2018-03-15] MEDS: Cephalexin CAP* 500 MG PO SCH (10:22)
[2018-03-15] MEDS: Calcium/Vitamin D TAB 250/125* TAB PO SCH (10:22)
[2018-03-15] MEDS: Omeprazole CAP* 20 MG PO SCH (10:22)
[2018-03-15] MEDS: Aspirin EC TAB* 81 MG TAB.EC PO SCH (10:22)
[2018-03-15] MEDS: Cholestyramine Resin* 4 GM POWDER PO SCH (10:23)
[2018-03-15] MEDS: Ramipril CAP* 5 MG PO SCH (10:23)
--- NOTE | 2018-03-15 13:00 | DCNOTE ---
Subjective Date of Service: 03/15/18 Interval History: patient reports she feels "much much better today" reporting she has more energy , good appetite and her abdominal and back pain has resolved. Per daughter she agrees there has been big improvement in her mother stating she is talkative and "more like herself". Pt reports she is stable on her feet and has been ambulating throughout the day. Nursing staff have no concerns Plan for DC to home. Objective Active Medications: Acetaminophen (Tylenol Tab*) 650 mg PO Q4H PRN PRN Reason: PAIN Last Admin: 03/14/18 19:46 Dose: 650 mg Aspirin (Aspirin Ec Tab*) 81 mg PO DAILY [facility] Last Admin: 03/15/18 10:22 Dose: 81 mg Calcium/Vitamin D (Oscal D Tab 250/125*) 1 tab PO DAILY [facility] Last Admin: 03/15/18 10:22 Dose: 1 tab Cephalexin HCl (Keflex Cap*) 500 mg PO BID [facility] Last Admin: 03/15/18 10:22 Dose: 500 mg Cholestyramine Resin (Questran*) 4 gm PO 2100 [facility] Heparin Sodium (Porcine) (Heparin Vial(*)) 5,000 units SUBCUT Q8HR [facility] Last Admin: 03/15/18 05:59 Dose: 5,000 units Lactobacillus Rhamnosus (Lactobacillus Acidophilus*) 1 tab PO DAILY [facility] Last Admin: 03/15/18 10:22 Dose: 1 tab Melatonin (Melatonin (Nf)) 3 mg PO BEDTIME PRN; Protocol PRN Reason: SLEEP Last Admin: 03/14/18 20:58 Dose: 3 mg Omeprazole (Prilosec Cap*) 20 mg PO BID [facility] Last Admin: 03/15/18 10:22 Dose: 20 mg Ramipril (Altace Cap*) 5 mg PO DAILY [facility] Last Admin: 03/15/18 10:23 Dose: 5 mg Simethicone (Mylicon Tab*) 80 mg PO Q6H PRN PRN Reason: bloating Last Admin: 03/14/18 19:46 Dose: 80 mg Vital Signs - 8 hr 03/15/18 07:32 Temperature 98.9 F Pulse Rate 67 Respiratory 17 Rate Blood Pressure 114/63 (mmHg) O2 Sat by Pulse 96 Oximetry Oxygen Devices in Use Now: None Appearance: well developed elderly female sitting up in bed in NAD, A+O x3 Eyes: No Scleral Icterus, PERRLA Ears/Nose/Mouth/Throat: NL Teeth, Lips, Gums, Mucous Membranes Moist Neck: NL Appearance and Movements; NL JVP Respiratory: Symmetrical Chest Expansion and Respiratory Effort, Clear to Auscultation Cardiovascular: NL Sounds; No Murmurs; No JVD, RRR, No Edema Abdominal: NL Sounds; No Tenderness; No Distention Lymphatic: No Cervical Adenopathy Extremities: No Edema, No Clubbing, Cyanosis Skin: No Rash or Ulcers, No Nodules or Sclerosis Neurological: Alert and Oriented x 3, NL Sensation, NL Gait, NL Muscle Strength and Tone Lines/Tubes/Other Access: Clean, Dry and Intact Peripheral IV Nutrition: Taking PO's Result Diagrams: 03/14/18 05:53 03/14/18 05:53 Assess/Plan/Problems-Billing Assessment: 87 yo female who was hospitalized from 03/10/18-03/11/18 with complaints of dizziness and was treated for mild dehydration, who re-presents on 03/12 with ongoing malaise found to have a UTI - Patient Problems (1) UTI (urinary tract infection) Comment: - no sepsis noted on admission; afebrile & no leukocytosis. feels better today, reports she feels stronger and ready to go home - son and daughter agrees with plan - Urine cx 03/10 grew e-coli 75-100K - started on keflex on admission based on BEBO - Renal ultrasound wnls (2) Dizziness Comment: - improving, mild. suspect 2nd to acute illness/mild dehydration (a little orthostatic last evening - was given 1 liter NS and now symptoms feel better. Vitamin B12 high?? Could cause dizziness. DC home B12. (3) HTN (hypertension) Comment: - BPs moderately high 150-170s, Continue Ramipril (4) GERD (gastroesophageal reflux disease) Comment: PPI BID (5) DNR (do not resuscitate) (6) DVT prophylaxis Comment: HSQ Status and Disposition: inpatient. Plan for DC home today
[2018-03-15 17:44] VITALS: BP 127/51
[2018-03-15] MEDS ORDERED: Cholestyramine Resin* 4 GM POWDER PO SCH (21:00)
--- NOTE | 2018-03-16 12:33 | DS ---
AMENDED REPORT NOW INCLUDES COSIGNER DESIGNATION - ESIGNED BEFORE ADJUSTMENTS CC: Dr. Lloyd * DISCHARGE SUMMARY: DATE OF ADMISSION: 03/12/18 DATE OF DISCHARGE: 03/15/18 PROVIDER: Lj Lancaster NP ATTENDING PHYSICIAN: Dr. Francois * (report dictated by Lj Lancaster NP). PRIMARY CARE PROVIDER: Dr. Lloyd. DISCHARGE DIAGNOSES: 1. Urinary tract infection. 2. Generalized weakness, resolved. SECONDARY DIAGNOSES: 1. Hypertension. 2. Anxiety. 3. Arthritis. 4. Gastroesophageal reflux disease. 5. Depression. DISCHARGE MEDICATIONS: 1. Aspirin 81 mg p.o. daily. 2. Cholestyramine 4 mg daily. 3. Omeprazole 20 mg p.o. twice a day. 4. Ramipril 5 mg p.o. daily. 5. Glucosamine chondroitin 1 tab p.o. daily. 6. Calcium plus D one tab p.o. daily. 7. Fish oil 1000 mg p.o. daily. 8. Simethicone 80 mg p.o. q.6 hours p.r.n. bloating. New medication: 1. Keflex 500 mg p.o. b.i.d. x8 more doses. HISTORY OF PRESENT ILLNESS AND HOSPITAL COURSE: Please see history and physical by Dr. Brar for full admission details, but in summary, this is an 87 -year-old female who lives at home alone and was admitted on 03/12/18 for complaints of generalized malaise and was found to have a urinary tract infection. Prior to that, she was hospitalized from 03/10 to 03/11 where she was diagnosed with mild dehydration and malaise and underwent a urine culture at that time, which the urinalysis was thought to be negative; however, after her discharge it did grow out E. coli with a colony count of 75,000 to 100,000. She was started on Keflex on admission due to the sensitivities. She also complained of dizziness and was found to be mildly orthostatic. She continued to have malaise up until today where she stated she feels back to her "own self " and reported the dizziness had resolved. In the emergency department, the patient underwent a mental health evaluation due to there was concern for depression and was seen by the psychiatrist who did not feel that she was suicidal and did not recommend inpatient psych admission at that time. Over the course of the patient's hospitalization, I have spoken with her multiple times about her depression with the patient along with her son and daughter. It is possible that the patient has had some intermittent depression for a long time, but also she has had some big changes in the past few years with her passing away as well as she states that she is getting old and that scares her. Along with the family, we discussed possible solutions to helping her be more active in her community and along with her family as well as I did recommend she speak to her primary care provider about possible medication use, but she wants to discuss this with Dr. Lloyd to discuss best course. As well, we discussed the patient possibly having some therapy sessions as I think some supportive talk therapy could be very beneficial for this patient, who is very internal about her motions as well as she has continued to grieve for her as well as she has fears around aging. She denies suicidal ideation. Today, the patient appears to be much brighter emotionally and overall is more talkative and appears that she feels better today. She is able to ambulate with the walker with a steady gait. She reports that she feels that she is ready to go home. She reports that her abdominal and back pain have completely resolved today. As well, she states that her appetite has returned as she has eaten both her meals today. The patient did have some noted orthostasis during her hospitalization, which resolved with IV fluids. She did report some mild dizziness that appeared to resolve as well with IV fluids. It is noted that her vitamin B12 is greater than 1450. This could also cause some dizziness; however, today after hydration her dizziness has resolved. I did discuss with the family that if she takes a B12 supplementation or B complex, which is not listed on her MAR, this should be discontinued. On admission, she had a urine culture, which grew E. coli 75,000 to 100,000; sensitive to Keflex. The patient will have 8 more doses of Keflex on discharge. The patient underwent a renal ultrasound, which showed no hydronephrosis of either kidney and a left renal cyst. DISCHARGE PLAN: Follow up with Dr. Lloyd within 1 to 5 days. To be discussed with Dr. Lloyd of the patient's depression and anxiety, possible medication and/or the patient is thinking about therapy and would like to speak to her physician about it. Return to the emergency department with any further or worsening symptoms. TIME SPENT: Approximately 60 minutes was spent on this discharge. LJ LANCASTER NP [id number]/[facility] #: [id number] GABRIEL
== END 2018-03-15 18:45 | disposition home health service (06) | DRG 690 ==
LOC: ED 15:23 → MED 03-13 01:21 → OBSVTOIN 03-14 14:00
PROVIDERS: ADMIT Hospitalist; ATTEND Student in an Organized Health Care Education/Training Program
DX: N39.0 Urinary tract infection, site not specified (principal); R53.1 Weakness; I10 Essential (primary) hypertension; F41.9 Anxiety disorder, unspecified; M19.90 Unspecified osteoarthritis, unspecified site; K21.9 Gastro-esophageal reflux disease without esophagitis; F32.9 Major depressive disorder, single episode, unspecified; I95.1 Orthostatic hypotension; B96.20 Unspecified Escherichia coli [E. coli] as the cause of diseases classified elsewhere; R42 Dizziness and giddiness; Z66 Do not resuscitate; R11.0 Nausea; Z79.82 Long term (current) use of aspirin
CPT/HCPCS: 36415; 70450; 76775; 80048; 80053; 80307; 80320; 80329; 81003; 81015; 82306; 82607; 83735; 84443; 85025; 87077; 87086; 87186; 93005; 99285; A9270-GY; G0378; G0480; G8978-GP-CI; G8978-GP-CK; G8979-GP-CH; J1644; J2250